=== PATIENT | male | born 1945 | race Caucasian/White ===

== ENCOUNTER 2016-12-12 20:25 | Emergency (ER) | payer MEDICARE ==
[~2016-12-12] VITALS: Ht 177.8 cm; Wt 102.0 kg
[~2016-12-12 20:25] MED LIST: AMLO5TAB2 PO; ATOR80TA PO; CARV6.25 PO; CLOP75TA3 PO; DIPH25CA6 PO; DOXA2TAB52 PO; INSU100I13 SUBQ; ISOS30TA4 PO; LISI40TA PO; MAG DELAY64 MG PO; PANT40TA2 PO
[2016-12-12 20:31] VITALS: BP 185/78; PULSE 148; RESP 22; O2SAT 98
[2016-12-12 21:07] LABS: BASOPHILS % (AUTO) 0.2 % (0-3); EOSINOPHILS % (AUTO) 1.8 % (0-5); Mean Corpuscular Hemoglobin 29.5 pg (27.0-35.0); Mean Corpuscular Volume 86.9 fL (81-100); Platelet Count 210 bil/L (150-400)
--- NOTE | 2016-12-12 21:21 | DRSVH ---
PROCEDURE: X-RAY CHEST ONE VIEW, PORTABLE ([id number]) INDICATIONS: CHEST PAIN TECHNIQUE: One view of the chest was acquired. COMPARISON: [facility], , CHEST 1VW (PORTABLE), 09/05/2011, 22:23. FINDINGS: Surgical changes and devices: None. Lungs and pleura: No pleural effusions or pneumothorax. Lungs are clear. Mediastinum: Mediastinal contours appear normal. Heart size is normal. Bones and chest wall: No suspicious bony lesions. Overlying soft tissues appear unremarkable. IMPRESSION: No acute cardiopulmonary disease. Dictated by: Brandon Dave M.D. on 12/12/2016 at 21:20 Approved by: Brandon Dave M.D. on 12/12/2016 at 21:20
--- NOTE | 2016-12-12 21:33 | ED.REPORT ---
HPI-Chest Pain 40 and Over Date of Service Dec 12, 2016 ED Provider: Carlyle Wilson MD Pt is a 71 y/o male w/ a hx of A-fib on Eliquis, NSTEMI, CVA, HTN, hyperlipidemia, DM, smoking, presenting to the ED due to increasing in frequency of intermittent episodes of rapid heart palpitations onset 3 days ago. The patient has been followed by Dr. Lopez since last August for a- fib and was recently changed from carvedilol to metoprolol 3 weeks ago. He was meant to be admitted to the hospital for 3 days of Sotalol treatment but personal complications along with no inpatient beds being available has caused him to be unable to have this performed. He was told by Dr. Lopez that "the next time I go into a-fib I should be admitted for Sotalol treatment". He c/o associated fatigue, SOB, and dyspnea on exertion. Pt denies CP, abdominal pain, N/V/D, fever, chills. Nursing Notes Stated Complaint: CHEST PAIN Chief Complaint: Dysrhythmia/Cardiac Nursing Notes Reviewed: Yes Allergies: Coded Allergies: Cephalosporins (Verified Allergy, Severe, 08/04/16) benzethonium chloride (Verified Allergy, Severe, Rash, 08/04/16) benzocaine (Verified Allergy, Severe, Rash, 08/04/16) ampicillin (Verified Allergy, Unknown, 08/04/16) sulbactam (Verified Allergy, Unknown, 08/04/16) Uncoded Allergies: NOVACAINE (Allergy, Mild, 10/21/06) ATENOLOL (Generic Allergy) (Allergy, Unknown, Y, 04/05/04) LANSOPRAZOLE (Generic Allergy) (Allergy, Unknown, Y, 04/05/04) NEOMYCIN,CARTISPORIN,CECLAR,PREVACID,SULFA,ATEROLOL, (Allergy, Unknown, 04/05) NEOMYCIN/HYDROCORTISONE ACET (Generic Allergy) (Allergy, Unknown, Y, 04/05/04 ) SULFA (Allergy, Unknown, 08/31/09) Scheduled Amlodipine (Amlodipine) 5 Mg Tablet 5 MG PO BID Atorvastatin (Lipitor) 80 Mg Tablet 80 MG PO DAILY Carvedilol (Coreg) 6.25 Mg Tablet 9.5 MG PO BID Clopidogrel Bisulfate (Plavix) 75 Mg Tablet 75 MG PO DAILY Doxazosin (Cardura) 2 Mg Tablet 2 MG PO HS Insulin Glargine (Lantus U100 Solostar Insulin Pen) 100 Unit/1 Ml Insuln.pen 21 UNIT SUBQ BID Isosorbide MN ER (Isosorbide MN ER) 30 Mg Tab.er.24h 30 MG PO DAILY Lisinopril (Lisinopril) 40 Mg Tablet 60 MG PO DAILY Magnesium (Mag Delay) 64 Mg Tab 64 MG PO BID Pantoprazole DR (Protonix) 40 Mg Tablet 40 MG PO DAILY Scheduled PRN Metoprolol Tartrate (Metoprolol Tartrate) 50 Mg Tablet 50 MG PO TID PRN PRN Tachycardia Miscellaneous Medications diphenhydrAMINE HCl (Benadryl) 25 Mg Capsule 25 MG PO General Time Seen by MD: 21:32 Chief Complaint Other (Pal[place]) Hx Obtained From: Patient, Spouse Arrived By: Walk-in Sudden in Onset?: No Onset Occurred: 3 days ago Symptom Duration: Intermittent Severity: Current: No pain currently Severity: Maximum: No pain Recent Healthcare: Previous diagnosis Similar Sx Previous: Yes Past Medical History Past Medical History Atrial fibrillation - on Eliquis Hypertension Hyperlipidemia CVA Hx NSTEMI Hx pneumonia Hx peptic ulcer GERD Hx kidney stones Type 2 diabetes Anxiety Past Surgical History Cardiac catheterization Smoking History Former Smoker, Smoker Current Status UNK Social History Alcohol Use: Denies alcohol use Drug Use: Denies drug use Other Social History: Ambulatory Status Independent Review of Systems Constitutional: Reports: Fatigue, Denies: Chills, Fever Respiratory: Reports: Shortness of breath Cardiovascular: Reports: Dyspnea on exertion, Palpitations, Denies: Chest pain GI: Denies: Abdominal pain, Diarrhea, Nausea, Vomiting Complete sys rev & neg: except as marked. Physical Exam Initial Vital Signs Vital Signs (First) Date Time Temp Pulse Resp B/P Pulse Ox O2 Delivery O2 Flow Rate FiO2 12/12/16 20:31 36.4 148 22 185/78 98 Room Air Initial VS: Reviewed, Vital signs abnormal Head / Eyes: Atraumatic, Normocephalic, PERRL ENT: Mucous membranes moist, Conjunctiva normal, No scleral icterus Neck: Supple, Full range of motion Extremities: Vascular intact, Neuro intact, No swelling, No tenderness Skin: Warm, Dry, No cyanosis Neurologic: Alert, Oriented, Nonfocal Psychiatric: Mood/affect normal, Behavior normal, Normal thought content General/Constitutional: Awake, Alert, No acute distress, Well appearing, Cooperative, Not toxic appearing Appearance / Presentation: Positive: Obese Respiratory / Chest: Atraumatic, Breath sounds NL, Breath sounds = bilat, No respiratory distress, No rales, No rhonchi, No wheezing, No retractions, No stridor, No chest tenderness, No chest wall deformity, No crepitus Cardiovascular: Heart sounds NL, No gallop, No murmurs, No rubs, Cap refill not delayed, Peripheral circulation NL Heart Rate / Rhythm: Positive: Irreg irregular rhythm, Tachycardia Abdomen: Atraumatic, Soft, Non-tender Interpretation & Diagnostics Lab Results Interpretation Result Diagram: 12/12/16204912/12/162049 Test 12/12/16 20:50 White Blood Count 12.7th/mm3 (3.8-10.1) Red Blood Count 4.64mil/mm3 (4.40-5.80) Hemoglobin 13.7g/dL (13.8-17.2) Hematocrit 40.3% (41.0-50.0) Mean Corpuscular Volume 86.9fL (81-100) Mean Corpuscular Hemoglobin 29.5pg (27.0-35.0) Mean Corpuscular Hemoglobin Concent 34.0% (32.0-37.0) Red Cell Distribution Width 13.5% (12.3-15.4) Platelet Count 210bil/L (150-400) Neutrophils (%) (Auto) 67.0% (40-74) Lymphocytes (%) (Auto) 22.6% (14-46) Monocytes (%) (Auto) 8.0% (4-12) Eosinophils (%) (Auto) 1.8% (0-5) Basophils (%) (Auto) 0.2% (0-3) Sodium Level 138mEq/L (134-144) Potassium Level 4.2mEq/L (3.5-5.2) Chloride Level 100mEq/L (97-108) Carbon Dioxide Level 20mmol/L (18-29) Blood Urea Nitrogen 20mg/dL (8-27) Creatinine 1.41mg/dL (0.76-1.27) Estimat Glomerular Filtration Rate 52mL/min (>59) Glucose Level 238mg/dL (60-99) Calcium Level 9.0mg/dL (8.5-10.1) Magnesium Level 1.1mg/dL (1.6-2.6) Total Bilirubin 0.4mg/dL (0.0-1.2) Aspartate Amino Transf (AST/SGOT) 14U/L (0-50) Alanine Aminotransferase (ALT/SGPT) 12U/L (0-44) Alkaline Phosphatase 63U/L (25-160) Troponin T 0.010ug/L (0.0-0.011) Total Protein 7.2g/dL (6.4-8.4) Albumin 4.3g/dL (3.4-5.0) Hold [place] Top Tube Received (Received) ECG Interpretation ECG Interpretation: A-fib rate 138 Old inferior infarct Time: 20:43 Interpreted by: ED physician Normal ECG Interpretation: No acute ischemic changes, No change from prior ECGs X-Ray Chest Interpretation Chest Xray Interpretation: IMPRESSION: No acute cardiopulmonary disease. Dictated by: Brandon Dave M.D. on 12/12/2016 at 21:20 Approved by: Brandon Dave M.D. on 12/12/2016 at 21:20 View: Portable, 1 view Interpretation / Wet Read by: Interpret - Radiologist Re-Eval/Medical Decision Time of Eval: 23:23 Re-Evaluation/Progress Note: Pt rechecked. Heart rate 97 after Dilt. He remains asymptomatic. Informed pt of plan for treatment. Pt understands and agrees with plan for treatment. F/U instructions and RTER warnings given. All questions addressed. Consultation : Referral / Consult Name: Willard Sierra MD Consulted With: Cardiology Call Returned at: 22:26 [employer] General Sales Manager: Agrees with eval, Agrees with plan Note: Case discussed. States that it is unsafe to begin Sotalol in the context of hypomagnesemia. Recommends discharge if appropriate. Counseled Regarding: Diagnosis, Lab results, Need for follow-up, When/why to return to ED Discharge & Departure Primary Impression: Atrial fibrillation with rapid ventricular response Additional Impression: Hypomagnesemia Disposition: Home Discharge Condition All VS Reviewed: Yes Condition: Stable Patient Instructions: Atrial Fibrillation (ED) Additional Instructions: Increase your magnesium pills to 2 in the morning and 2 at night. Take all of the rest your medications as previously prescribed. Additionally, if your heart rate is persistently higher than 110 bpm, take metoprolol tartrate 50 mg as frequently as 3 times daily if needed. If you feel significant breathlessness or chest pain because of your heart rate, return to the emergency department. Call Dr. Lopez's office in the morning to arrange follow-up in the coming days. Referrals: Naveed Martínez MD (PCP) Clauidne Lopez MD Attestation Portions of this note were transcribed by Ras Manuel. I, Dr. Wilson personally performed the history, physical exam and medical decision-making; I reviewed and confirmed the accuracy of the information in the transcribed note. Signed by Miguel Gomes, 12/12/16 - 2199 copies to: Naveed Martínez MD; Claudine Lopez MD, Kirk H MD Dec 12, 2016 21:33 RAS MANUEL Dec 12, 2016 22:06
[2016-12-12 21:42] LABS: TROPONIN T 0.01 ug/L (0.0-0.011)
[2016-12-12] MEDS ORDERED: Diltiazem 5 mg/mL 5 mL Inj IVPUSH ONE (22:00)
[2016-12-12 22:02] LABS: Magnesium 1.1 mg/dL (1.6-2.6)
[2016-12-12] MEDS ORDERED: Magnesium Sulf 2 Gm/50mL Water 2 GM in IV Premix 1 EACH IV ONE (22:10)
[2016-12-12] MEDS ORDERED: Diltiazem CD 180 mg ER24 Capsule PO ONE (23:30)
[2016-12-12] MEDS ORDERED: METO50TA3 PO (23:33)
[2016-12-13 00:04] VITALS: BP 128/61; PULSE 94; RESP 16; O2SAT 98
== END 2016-12-13 00:03 | disposition home or self-care (01) ==
LOC: SED 20:25
DX: I48.91 Unspecified atrial fibrillation (principal); E83.42 Hypomagnesemia; R06.02 Shortness of breath; R53.83 Other fatigue; I10 Essential (primary) hypertension; E78.5 Hyperlipidemia, unspecified; E11.9 Type 2 diabetes mellitus without complications; K21.9 Gastro-esophageal reflux disease without esophagitis; Z87.01 Personal history of pneumonia (recurrent); Z86.73 Personal history of transient ischemic attack (TIA), and cerebral infarction without residual deficits; Z87.891 Personal history of nicotine dependence; Z88.8 Allergy status to other drugs, medicaments and biological substances; Z88.1 Allergy status to other antibiotic agents; Z79.4 Long term (current) use of insulin